=== PATIENT | male | born 1940 | race Caucasian/White ===

== ENCOUNTER 2017-09-16 13:40 | Emergency (ER) | payer OTHER ==
[~2017-09-16] VITALS: Ht 172.7 cm; Wt 145.1 kg
--- NOTE | 2017-09-16 13:42 | NUR ---
PT BIBA FOR BILAT GANGRENE TO BED 10
[2017-09-16 13:44] VITALS: BP 137/82
--- NOTE | 2017-09-16 13:45 | NUR ---
PT REFUSING TO CHANGE INTO A GOWN.
--- NOTE | 2017-09-16 13:56 | NUR ---
77 YO M BIBA W/ C/O BILATERAL FOOT PAIN; PT REPORTS "I HAVE A DIABETIC FOOT GANGRENE." FEET DO NOT APPEAR GANGRENOUS UPON ASSESSMENT, BUT DO APPEAR SWOLLEN. SKIN INTACT, BUT DRY AND FLAKEY BILATERALLY ON THE FEET W/ TOES UNKEMPT. NO NOTED INJURY TO THE HEELS. PULSES PALPABLE AND CAP REFILL ABOUT 3/4 SECONDS, SLIGHTLY DELAYED. PT A&O X 4. GCS 15. CMS INTACT. RESPIRATIONS EVEN AND UNLABORED. LUNGS BILAT CLEAR. ABD SOFT, NON-TENDER. PT DENIES N/V/D/FEVER/CHILLS. 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 ER MD CARCAMO NOTIFIED. PT NEEDS MET. SAFETY PRECAUTIONS IN PLACE. WILL CONTINUE TO MONITOR.
[2017-09-16] MEDS ORDERED: GABAPENTIN 300 MG CAP PO ONE (14:10)
[2017-09-16] MEDS ORDERED: NACL 0.9% 500 ML IV ONE (14:10)
[2017-09-16] MEDS ORDERED: KETOROLAC 30 MG/ML VIAL IVP ONE (14:10)
--- NOTE | 2017-09-16 14:40 | NUR ---
Pt reports that he does not have anywhere to go and that the only reason he came to the hospital is to "escape" where he currently lives, which pt does not know the name of. Per embedded hardware engineer report, pt was found in the street. Pt hx mental illness. Lora called in regards to pt to see what resources are avialbloe outside of the homeless "resource packet" pt was already given. Bus pass given to pt along with hygiene bag, socks, and some snacks. Pt using the phone at this time to call some of the facikities provided in the packet.
[2017-09-16 14:48] VITALS: BP 137/82
--- NOTE | 2017-09-16 14:49 | NUR ---
Patient discharged with v/s stable. Written and verbal after care instructions given and explained. Patient verbalized understanding. Ambulatory with steady gait w/ walker. All questions addressed prior to discharge. Advised to follow up with PMD.
--- NOTE | 2017-09-16 16:52 | NUR ---
Social Service Note: I was informed by Vice President Quality Assurance Les patient needed assistance with community resources. Patient was in the lobby at ED, patient had already been discharged. Les and I met with patient. Per patient, he lives in a room and board and prefers not to provide us with address or phone number of room and board. He stated he does not want to return there, he would like to go to [address] He stated he has been there before. He reported that if [facility] ([facility]) does not have a bed for him, he will go to a nearby hotel. He declined community resources, however, requested assistance with transportation to [facility].
== END 2017-09-16 14:49 | disposition home or self-care (01) ==
LOC: MED 13:40
DX: E11.9 Type 2 diabetes mellitus without complications (principal); F20.9 Schizophrenia, unspecified
CPT/HCPCS: 99283